=== PATIENT | female | born 1965 | race Caucasian/White ===

== ENCOUNTER 2020-02-12 17:45 | Emergency (ER) | payer OTHER ==
[2020-02-12 17:56] VITALS: BP 125/76; PULSE 78; RESP 18; TEMP 98.4
[2020-02-12] MEDS ORDERED: KETOROLAC 30 MG/ML 1 ML VIAL IM STA (18:11)
[2020-02-12] MEDS ORDERED: MORPHINE SULFATE 4 MG/ML SYRINGE IM STA (18:11)
[2020-02-12] MEDS ORDERED: DIAZEPAM 5 MG/ML 2 ML INJ IM ONE (18:12)
--- NOTE | 2020-02-12 18:31 | XR ---
EXAMINATION TYPE: XR lumbar spine 2 or 3V DATE OF EXAM: 02/12/2020 Comparison: None Clinical History: 54-year-old female low back pain Findings: 5 lumbar type vertebral bodies. Hypertrophic facet arthropathy mid to lower lumbar spine. Mild disc s pace narrowing L5-S1. Vertebral body heights are preserved and alignment is maintained. Impression: 1. Hypertrophic facet arthropathy mid to lower lumbar spine. No malalignment. 2. No vertebral compression collapse. 3. Mild degenerative disc disease L5-S1.
--- NOTE | 2020-02-12 18:34 | ED ---
General Adult HPI - General Chief complaint: Back Pain/Injury Stated complaint: Back injury Time Seen by Provider: 02/12/20 18:02 Source: patient, RN notes reviewed, old records reviewed Mode of arrival: ambulatory Limitations: no limitations - History of Present Illness Initial comments: 54-year-old female presents for evaluation of right-sided low back pain. History of sciatica she states that on Saturday of this week which was 3 days ago she was moving a box with her right foot and she had sudden pain in the upper buttock and low back on the right. The pain was shooting into her thigh. She denied weakness in the extremity. Denies any numbness on her inner thighs. Denies any loss of bowel or bladder function. No fever. No dysuria or he maturia. She had been seen at urgent care, prescribed a muscle relaxer and 800 Motrin. She states this has helped a little bit but she still having significant pain. She has been unable to work and also needs a work note. - Related Data Previous Rx's Medication Instructions Recorded Cyclobenzaprine [Flexeril] 5 mg PO TID PRN #9 tablet 02/12/20 HYDROcodone/APAP 5-325MG [[place] 1 tab PO Q6HR PRN #12 tab 02/12/20 5-325] Ibuprofen [Motrin] 600 mg PO Q8HR PRN #24 tab 02/12/20 Allergies Allergy/AdvReac Type Severity Reaction Status Date / Time latex Allergy Rash/Hives Verified 02/12/20 17:56 Penicillins Allergy Unknown Verified 02/12/20 17:56 Childhood Sulfa (Sulfonamide Allergy Nausea Verified 02/12/20 17:56 Antibiotics) sulfamethoxazole Allergy Nausea Verified 02/12/20 17:56 [From Bactrim] trimethoprim [From Bactrim] Allergy Nausea Verified 02/12/20 17:56 Review of Systems ROS Statement: Those systems with pertinent positive or pertinent negative responses have been documented in the HPI. ROS Other: All systems not noted in ROS Statement are negative. Past Medical History Past Medical History: Thyroid Disorder Additional Past Medical History / Comment(s): thyroid mass, past hx of breast CA, pre osteoporosis, glaucoma History of Any Multi-Drug Resistant Organisms: None Reported Past Surgical History: Tonsillectomy Additional Past Surgical History / Comment(s): left lumpectomy with lymphnode removal and bilateral breast reconstruction Past Psychological History: Anxiety Smoking Status: Current every day smoker Past Alcohol Use History: None Reported Past Drug Use History: None Reported General Exam Limitations: no limitations General appearance: alert, in no apparent distress Head exam: Present: atraumatic, normocephalic Eye exam: Present: normal appearance, PERRL ENT exam: Present: normal exam Neck exam: Present: normal inspection. Absent: tenderness, meningismus Respiratory exam: Present: normal lung sounds bilaterally. Absent: respiratory distress, wheezes Cardiovascular Exam: Present: regular rate, normal rhythm GI/Abdominal exam: Present: soft. Absent: distended, tenderness Extremities exam: Present: normal inspection, normal capillary refill, other (Distal pulses intact, 2+). Absent: pedal edema Back exam: Present: muscle spasm, paraspinal tenderness. Absent: vertebral tenderness Neurological exam: Present: alert, oriented X3, CN II-XII intact, motor sensory deficit, reflexes normal (Bilateral patellar reflexes are normal) Psychiatric exam: Present: normal affect, normal mood Skin exam: Present: warm, dry, intact. Absent: cyanosis, diaphoretic Course Vital Signs 02/12/20 17:48 Temperature 98.4 F Pulse Rate 78 Respiratory 18 Rate Blood Pressure 125/76 O2 Sat by Pulse 99 Oximetry Medical Decision Making - Medical Decision Making 54-year-old female with paraspinal low back strain. Tenderness and muscle spasm in the right paraspinal muscles on exam. Normal reflexes, no alarming features on history or physical exam. X-ray of the lumbar spine is performed which is negative for fracture or subluxation, shows some mild disc disease and facet arthropathy. Patient is given muscle relaxer, anti-inflammatory in the emergency department on reevaluation she is feeling much better. Disposition Clinical Impression: Strain of lumbar region, Mechanical back pain Disposition: HOME SELF-CARE Condition: Good Instructions (If sedation given, give patient instructions): Acute Low Back Pain (ED) Prescriptions: Cyclobenzaprine [Flexeril] 5 mg PO TID PRN #9 tablet PRN Reason: Muscle Spasm Ibuprofen [Motrin] 600 mg PO Q8HR PRN #24 tab PRN Reason: Pain HYDROcodone/APAP 5-325MG [[place] 5-325] 1 tab PO Q6HR PRN #12 tab PRN Reason: Pain Is patient prescribed a controlled substance at d/c from ED?: No Referrals: Nonstaff,Physician [Primary Care Provider] - 1-2 days Jayce Miner MD [Medical Doctor] - 1-2 days Time of Disposition: 18:33
== END 2020-02-12 19:33 | disposition home or self-care (01) ==
LOC: EC 17:45
DX: S39.012A Strain of muscle, fascia and tendon of lower back, initial encounter (principal); M81.0 Age-related osteoporosis without current pathological fracture; H40.9 Unspecified glaucoma; F17.200 Nicotine dependence, unspecified, uncomplicated; Z88.0 Allergy status to penicillin; Z88.1 Allergy status to other antibiotic agents; Z88.2 Allergy status to sulfonamides; Z91.040 Latex allergy status; Z85.3 Personal history of malignant neoplasm of breast; X50.0XXA Overexertion from strenuous movement or load, initial encounter; Y93.89 Activity, other specified
CPT/HCPCS: 72100; 99284; 96372 ×3; J2270; J3360; J1885